=== PATIENT | female | born 1980 | race Caucasian/White ===

== ENCOUNTER → 2018-03-06 | Outpatient (CLI) | payer OTHER ==
[~2018-03-06] MED LIST: ACHD5005 PO; B12 IM; ESCT10T PO; IBP600T1 PO; INSU100VTC SQ; METF-380 PO; NF-NOR777T PO; PREN1TAB19 PO
--- NOTE | 2018-03-06 18:04 | Diagnostic Imaging Report ---
INDICATION: Routine screening. COMPARISON: No prior mammograms are available for comparison. This is a baseline study. TECHNIQUE: 2D and 3D bilateral screening mammography was performed with computer-aided detection (CAD) system. FINDINGS: Scattered fibroglandular densities are identified bilaterally. No mass or malignant appearing microcalcifications are seen. There are benign calcifications present. The axillae are unremarkable. IMPRESSION: No mammographic features suspicious for malignancy are identified. ACR BI-RADS Category 2: Benign findings. Result letter will be mailed to the patient. Note: At least 10% of breast cancer is not imaged by mammography. Dictated by: Dictated on workstation # [id number]
== END ==
LOC: RAD 13:54
PROVIDERS: ATTEND Nurse Practitioner Family
DX: Z12.31 Encounter for screening mammogram for malignant neoplasm of breast (principal)
CPT/HCPCS: 77067

== ENCOUNTER → 2019-03-26 | Outpatient (CLI) | payer OTHER ==
--- NOTE | 2019-03-26 08:52 | Diagnostic Imaging Report ---
PROCEDURE: US Gallbladder. TECHNIQUE: Multiple real-time grayscale images were obtained over the right upper quadrant in various projections. INDICATION: Belching, diarrhea. FINDINGS: Liver is enlarged measuring up to 23 cm. Diffuse increased echogenicity is seen throughout the liver consistent with hepatic steatosis. No discrete liver mass is identified. The portal vein is patent and shows normal direction of flow. Gallbladder appears to be contracted. No gallstones or sludge are seen. There is no wall thickening or biliary ductal dilatation. Pancreas was obscured by bowel gas. Right kidney is unremarkable. No calculi or hydronephrosis is seen. There is no ascites. IMPRESSION: 1. Hepatomegaly and hepatic steatosis. 2. Somewhat contracted gallbladder. No definite findings to suggest cholelithiasis or acute cholecystitis are identified. Dictated by: Dictated on workstation # [id number]
== END ==
LOC: RAD 07:18
PROVIDERS: ATTEND Nurse Practitioner Family
DX: K76.0 Fatty (change of) liver, not elsewhere classified (principal); K82.8 Other specified diseases of gallbladder
CPT/HCPCS: 76705

== ENCOUNTER → 2019-04-23 | Outpatient (CLI) | payer OTHER ==
[~2019-04-23] MED LIST changes: +CATHETER FLUSH 10 ML SYR IV PRN
--- NOTE | 2019-04-23 15:36 | Diagnostic Imaging Report ---
INDICATION: Right upper quadrant pain. TECHNIQUE: Patient was administered 5.3 mCi technetium-99m Choletec intravenously and imaging over the abdomen was performed. At 60 minutes, patient ingested one can of Ensure and gallbladder ejection fraction was calculated. FINDINGS: Homogeneous uptake of activity by the liver is seen. There is prompt excretion of activity into the gallbladder and common duct. Normal passage of activity into the small bowel is seen. Gallbladder ejection fraction is mildly low at 26%. Normal values are 33% or greater. IMPRESSION: 1. Patent cystic duct and common bile duct. 2. Slightly low gallbladder ejection fraction of 26%. Dictated by: Dictated on workstation # [id number]
== END ==
LOC: CARD 11:36
PROVIDERS: ATTEND Nurse Practitioner Family
DX: K82.0 Obstruction of gallbladder (principal)
CPT/HCPCS: 78227

== ENCOUNTER 2019-05-26 05:33 | Outpatient (CLI) | payer OTHER ==
[~2019-05-26] VITALS: Ht 160 cm; Wt 130.0 kg
[~2019-05-26 05:33] MED LIST changes: -CATHETER FLUSH 10 ML SYR IV PRN
[2019-05-26] MEDS ORDERED: LOSA100T57 PO (10:00)
[2019-05-26] MEDS ORDERED: DULA0.75 SQ (10:18)
[2019-05-26] MEDS ORDERED: FAMO-119 PO (10:18)
[2019-05-26] MEDS ORDERED: ATOR10TA PO (10:18)
[2019-05-26] MEDS ORDERED: BUPR150T7 PO (10:18)
[2019-05-26] MEDS ORDERED: AMLO10TA7 PO (10:18)
[2019-05-27] MEDS ORDERED: ACHD5005 PO (11:42)
[2019-05-27] MEDS ORDERED: DOCU-143 PO (11:42)
== END 2019-05-26 14:35 | disposition home or self-care (01) ==
LOC: PREOP 05:33
PROVIDERS: ATTEND Surgery
DX: Z01.818 Encounter for other preprocedural examination (principal)

== ENCOUNTER 2019-05-27 08:37 | Day surgery (SDC) | payer OTHER ==
[2019-05-27] VITALS (11 sets, daily range): BP systolic 127–148; BP diastolic 83–102
[~2019-05-27] VITALS: Ht 162.6 cm; Wt 129.8 kg
[~2019-05-27 08:37] MED LIST changes: +AMLO10TA7 PO; +ATOR10TA PO; +BUPR150T7 PO; +DULA0.75 SQ; +FAMO-119 PO; +LOSA100T57 PO
[2019-05-27] MEDS ORDERED: ceFAZolin 2 GM/50 ML NS 50 ML ONE (08:59)
[2019-05-27] MEDS: LACTATED RINGERS 1,000 ML IV PRN ×2 (09:00→11:00)
[2019-05-27 09:13] LABS: BASOPHILS # (AUTO) 0.1 10^3/uL (0.0-0.1); BASOPHILS % (AUTO) 1 % (0-10); EOSINOPHILS # (AUTO) 0.1 10^3/uL (0.0-0.3); EOSINOPHILS % (AUTO) 1 % (0-10); HEMATOCRIT 43 % (35-52); HEMOGLOBIN 14.9 G/DL (11.5-16.0); LYMPHOCYTES # (AUTO) 3.2 X 10^3 (1.0-4.0); LYMPHOCYTES % (AUTO) 38 % (12-44); MEAN CORPUSCULAR HEMOGLOBIN 30 PG (25-34); MEAN CORPUSCULAR HGB CONC 34 G/DL (32-36); MEAN CORPUSCULAR VOLUME 88 FL (80-99); MEAN PLATELET VOLUME 10.3 FL (7.4-10.4); MONOCYTES # (AUTO) 0.5 X 10^3 (0.0-1.0); MONOCYTES % (AUTO) 6 % (0-12); NEUTROPHILS # (AUTO) 4.5 X 10^3 (1.8-7.8); NEUTROPHILS % (AUTO) 54 % (42-75); PLATELET COUNT 284 10^3/uL (130-400); RED CELL DISTRIBUTION WIDTH 12.9 % (10.0-14.5); WHITE BLOOD COUNT 8.4 10^3/uL (4.3-11.0)
[2019-05-27] MEDS ORDERED: ceFAZolin 2 GM/50 ML NS 50 ML IV ONE (09:15)
[2019-05-27] MEDS ORDERED: BUP/EPI 0.25% 1:200,000 (MARCAINE) 10 ML VIAL IJ ONE (09:44)
[2019-05-27] MEDS ORDERED: fentaNYL INJECTION 100 MCG/2 ML AMP ONE ×2 (09:55→11:32)
[2019-05-27] MEDS ORDERED: MIDAZOLAM 2 MG/2 ML (VERSED) VIAL ONE (09:56)
--- NOTE | 2019-05-27 10:34 | Progress Note-Pre Operative ---
Pre-Operative Progress Note H&P Reviewed The H&P was reviewed, patient examined and no changes noted. Date Seen by Provider: May 27, 2019 Time Seen by Provider: 10:34 Date H&P Reviewed: May 27, 2019 Time H&P Reviewed: 10:34 Pre-Operative Diagnosis: biliary dyskinesia JONNY CARTER DO May 27, 2019 10:34
[2019-05-27] MEDS ORDERED: ONDANSETRON 4 MG/2 ML (SDV) Z0FRAN ONE (10:59)
[2019-05-27] MEDS ORDERED: LABETALOL HCL 20 MG/4 ML VIAL ONE (10:59)
[2019-05-27] MEDS ORDERED: GLYCOPYRROLATE 0.2 MG/ML (ROBINUL) 2 ML VIAL ONE (10:59)
[2019-05-27] MEDS ORDERED: SEVOFLURANE (ULTANE) 15 ML INHAL SOLN ONE (10:59)
[2019-05-27] MEDS ORDERED: ROCURONIUM 10 MG/ML 5 ML SYRINGE IV ONE ×2 (10:59→11:19)
[2019-05-27] MEDS ORDERED: proPOfol 200 MG/20 ML (DIPRIVAN) VIAL IV ONE (10:59)
[2019-05-27] MEDS ORDERED: NEOSTIGMINE 3 MG/3 ML VIAL ONE (10:59)
[2019-05-27] MEDS ORDERED: LIDOCAINE PF 2% 5 ML (XYLOCAINE) VIAL ONE (10:59)
--- NOTE | 2019-05-27 11:39 | Progress Note-Post Operative ---
Post-Operative Progess Note Surgeon (s)/Small Piece Cutter (s) Surgeon JONNY CARTER DO Small Piece Cutter: Dr. Burch Pre-Operative Diagnosis biliary dyskinesia Post-Operative Diagnosis same Procedure & Operative Findings Date of Procedure 05/27/19 Procedure Performed/Findings lap tito c ioc Anesthesia Type gen Estimated Blood Loss Estimated blood loss (mL): min Specimens/Packing Specimens Removed gallbladder JONNY CARTER DO May 27, 2019 11:39
[2019-05-27] MEDS ORDERED: ACHD5005 PO (11:42)
[2019-05-27] MEDS ORDERED: DOCU-143 PO (11:42)
--- NOTE | 2019-05-27 11:44 | Discharge Inst-Simple/Standard ---
Discharge Inst-Standard Discharge Medications New, Converted or Re-Newed RX: RX on Chart Patient Instructions/Follow Up Plan of Care/Instructions/FU: 2 weeks Pauly Activity as Tolerated: No Discharge Diet: Regular Diet Other Inst to Patient Follow up Appt: Make appointment for 2 weeks. Instructions: No lifting greater than 10 pounds. No strenuous activity. May shower in 24 hours, no tub bath or soaking. Use incentive spirometer at home as directed. No Smoking Skin/Wound Care: You have special glue over incision it will fall off on its own. Symptoms to Report: Appetite Changes, Extremity Discoloration, Numbness/Tingling, Swelling Increased, Bleeding Excessive, Eyesight Changes, Pain Increased, Urine Color Change, Constipation(Persistent), Fever over 101 degree F, Pain/Pressure in chest, Urinating Difficulty, Cough Up/Vomit Blood, Heart Beat Irreg/Pounding, Pain/Pressure in jaw, Vaginal Bleeding Increase, Cramps in feet or legs, Lightheadedness, Pain/Pressure in shoulder, Diarrhea(Persistent), Memory Changes Suddenly, Questions/Concerns, Weight gain consecutive days, Dizziness/Fainting, Nausea/Vomiting, Shortness of Breath, Weight gain over 2 pounds. If eyes or skin turn yellow notify physician. If questions or concerns contact your physician Or seek help at emergency department. JONNY CARTER DO May 27, 2019 11:43
[2019-05-27] MEDS ORDERED: ONDANSETRON 4 MG/2 ML (SDV) Z0FRAN IVP PRN (12:00)
[2019-05-27] MEDS ORDERED: morphine INJ 10 MG/ML 1ML (SYR OR VIAL) IVP ONE (12:00)
[2019-05-27] MEDS ORDERED: HYDROmorphone 2 MG/ML VIAL (DILAUDID) IV ONE (12:00)
[2019-05-27] MEDS ORDERED: HYDROcodone/APAP 5 MG/325 MG (LORTAB) TAB PO ONE (13:15)
--- NOTE | 2019-05-27 15:14 | Anesthesia-General Post-Op ---
General Post Op Complications Complications None Follow Up Care/Instructions Patient Instructions None needed. Anesthesia/Patient Condition Patient Condition Patient is doing well, no complaints, stable vital signs, no apparent adverse anesthesia problems. No complications reported per nursing. MALLIKA TO DO May 27, 2019 15:14
--- NOTE | 2019-05-27 16:23 | Diagnostic Imaging Report ---
INDICATION: Fluoroscopy during intraoperative cholangiogram. EXAMINATION: Fluoroscopy was provided during intraoperative cholangiogram. 12 seconds of fluoroscopic time was utilized. FINDINGS: Images demonstrate contrast being injected via the cystic duct remnant. Intrahepatic and extrahepatic bile ducts are normal caliber. No filling defects are seen. Contrast passes into the duodenum. IMPRESSION: Fluoroscopy for intraoperative cholangiogram. Dictated by: Dictated on workstation # [id number]
--- NOTE | 2019-05-27 22:53 | OPERATIVE REPORT ---
DATE OF SERVICE: 05/27/2019 PREOPERATIVE DIAGNOSIS: Biliary dyskinesia. POSTOPERATIVE DIAGNOSIS: Biliary dyskinesia. PROCEDURE: Laparoscopic cholecystectomy with intraoperative cholangiogram. SURGEON: Jonny Coats DO MANAGER GAMES: Dr. Burch, assisted in retraction, dissection and closure. ANESTHESIA: General. ESTIMATED BLOOD LOSS: Minimal. COMPLICATIONS: None. INDICATIONS: The patient is a 39-year-old female with symptoms and radiological imaging demonstrating biliary dyskinesia. She understands risks and benefits of procedure and wished to proceed with procedure. Consent was signed in the chart. DESCRIPTION OF PROCEDURE: The patient was taken to the operating suite. She was prepped and draped in sterile fashion. A timeout was performed. Local anesthetic was infiltrated just above the umbilicus. A 12 mm incision was made and cautery used to dissect down to the fascia, which was then scored, grasped and elevated and the abdomen was entered. An 0 Vicryl was placed in a [id number] fashion for closure at the end of the case. Balloon trocar was inserted and pneumoperitoneum was achieved. Under direct visualization of the laparoscope, a 5 mm trocar was placed in the subxiphoid region and two 5 mm trocars were placed in the right upper quadrant. Gallbladder was grasped, elevated. The gallbladder had multiple adhesions, which were then taken down with both blunt and cautery dissection. The cystic duct and cystic artery were then dissected out. Clips were placed on the proximal and distal portion of the cystic artery and the distal portion of the cystic duct. The cystic duct was then partially transected. Arrow catheter was inserted and cholangiogram was performed. There were no filling defects. Contrast made its way into the duodenum without difficulty. The Arrow catheter was removed. Clips were placed on the proximal portion of the cystic duct and the duct and artery were then transected. Hook cautery used to dissect the gallbladder from the gallbladder fossa achieving hemostasis. Once removed, it was placed in an Endobag and removed through 12 mm trocar site. The abdomen was then irrigated with copious amounts of irrigation and suction. The abdomen was then desufflated, the trocars were removed. The 0 Vicryl was placed earlier was then tied closing the fascial defect of the 12 mm trocar site. The skin was then closed using 4-0 Monocryl in subcuticular fashion. The abdomen was washed and dried and Skin Affix was placed over the incisions. The patient tolerated procedure well without any complications. She was taken to recovery room in stable condition. Job ID: [id number] DocumentID: [id number] Dictated Date: 05/27/2019 16:57:18 [employer] Date: 05/27/2019 22:52:11 Dictated By: JONNY COATS DO
== END 2019-05-27 14:13 | disposition home or self-care (01) ==
LOC: SDC 08:37
PROVIDERS: ATTEND Surgery
DX: K81.1 Chronic cholecystitis (principal); D13.5 Benign neoplasm of extrahepatic bile ducts; K82.8 Other specified diseases of gallbladder; K21.9 Gastro-esophageal reflux disease without esophagitis; I10 Essential (primary) hypertension; G47.33 Obstructive sleep apnea (adult) (pediatric); E11.9 Type 2 diabetes mellitus without complications; E66.01 Morbid (severe) obesity due to excess calories; F41.9 Anxiety disorder, unspecified; Z68.43 Body mass index [BMI] 50.0-59.9, adult; Z90.89 Acquired absence of other organs; Z88.8 Allergy status to other drugs, medicaments and biological substances; Z79.891 Long term (current) use of opiate analgesic; Z79.899 Other long term (current) drug therapy; Z82.3 Family history of stroke; Z82.49 Family history of ischemic heart disease and other diseases of the circulatory system; Z83.3 Family history of diabetes mellitus; Z82.62 Family history of osteoporosis
CPT/HCPCS: 36415; 84703; 85025; 87081; 88304; 94664

== ENCOUNTER → 2022-04-10 | Outpatient (CLI) | payer OTHER ==
[~2022-04-10] MED LIST changes: +AMLO-251 PO; -AMLO10TA7 PO; +BUPR150T24 PO; -BUPR150T7 PO; +DOCU-143 PO
--- NOTE | 2022-04-11 09:02 | Diagnostic Imaging Report ---
INDICATION: Routine screening. COMPARISON: 03/06/2018. TECHNIQUE: 2D and 3D bilateral screening mammography was performed with CAD. FINDINGS: Scattered fibroglandular densities are identified bilaterally. The parenchymal pattern is stable. No mass or malignant-appearing microcalcifications are seen. The axillae are unremarkable. IMPRESSION: No mammographic features suspicious for malignancy are identified. ACR BI-RADS Category 1: Negative. Result letter will be mailed to the patient. Note: At least 10% of breast cancer is not imaged by mammography. Dictated by: Dictated on workstation # [id number]
== END ==
LOC: RAD 15:13
PROVIDERS: ATTEND Obstetrics & Gynecology
DX: Z12.31 Encounter for screening mammogram for malignant neoplasm of breast (principal)
CPT/HCPCS: 77063; 77067

== ENCOUNTER → 2023-01-10 | Outpatient (CLI) | payer OTHER | LOC: CARD 12:26 | PROVIDERS: ATTEND Internal Medicine Cardiovascular Disease | DX: I10 Essential (primary) hypertension (principal); I25.10 Atherosclerotic heart disease of native coronary artery without angina pectoris | CPT/HCPCS: 93306 ==

== ENCOUNTER → 2023-01-20 | Outpatient (CLI) | payer OTHER ==
[2023-01-20 10:01] VITALS: BP 124/76
--- NOTE | 2023-01-20 12:13 | Cardiology Stress Test Report ---
Stress Test Report Date of Procedure/Referring: Date of Procedure: January 20, 2023 PCP Sabine Green MD Admitting Physician Admitting Physician: Attending Physician: Joon Doshi MD Baseline Heart Rate: 94 Baseline Blood Pressure: Blood Pressure Systolic: 124 Blood Pressure Diastolic: 76 Baseline EKG: Baseline EKG: NSR Summary/Conclusion: Summary: In summary, the patient started exercising with a baseline heart rate, blood pressure and EKG mentioned above Patient was able to exercise for a total of 5 minutes on Sebastien protocol, METs 7 Maximum heart rate 167 Maximum blood pressure 189/103 Stress EKG, Minimal nondiagnostic changes Recovery EKG , Return to baseline Conclusion: Fair exercise tolerance 45 minutes on standard Sebastien protocol 7 minutes, achieving 92% of maximal expected heart rate Hypertensive response to exercise with peak blood pressure 189/103 return to baseline during recovery Nondiagnostic EKG changes with exercise return to baseline during recovery No arrhythmia was detected JOON DOSHI MD January 20, 2023 12:13
== END ==
LOC: CARD 09:27
PROVIDERS: ATTEND Internal Medicine Cardiovascular Disease
DX: R07.9 Chest pain, unspecified (principal); R00.2 Palpitations
CPT/HCPCS: 93017

== ENCOUNTER → 2023-04-14 | Outpatient (CLI) | payer OTHER ==
[~2023-04-14] MED LIST changes: +BARIUM for suspension 96% w/w (Vanilla Silq Medium Density) PO ONE; +BARIUM for suspension 98% w/w (Vanilla Silq High Density) PO ONE; -LOSA100T57 PO; +LOSA100T58 PO
--- NOTE | 2023-04-14 11:05 | Diagnostic Imaging Report ---
INDICATION: Reflux and pre-gastric sleeve workup. TECHNIQUE: The patient ingested effervescent crystals as well as thin and thick barium and imaging over the esophagus, stomach, and proximal small bowel was performed. A total of 0.7 minutes of fluoroscopic time was utilized. 33 images were obtained. Reference air kerma is 134 mGy. FINDINGS: The preliminary radiograph of the abdomen is unremarkable. The esophagus has a smooth contour. No mass or stricture is identified. No hiatal hernia or gastroesophageal reflux is demonstrated. The stomach has a normal configuration. No mass or ulceration is seen. The proximal small bowel is unremarkable. IMPRESSION: Unremarkable upper GI study. Dictated by: Dictated on workstation # [id number]
== END ==
LOC: RAD 09:13
PROVIDERS: ATTEND Surgery
DX: Z01.818 Encounter for other preprocedural examination (principal); K21.9 Gastro-esophageal reflux disease without esophagitis
CPT/HCPCS: 74246

== ENCOUNTER → 2023-04-16 | Outpatient (CLI) | payer OTHER ==
[~2023-04-16] MED LIST changes: -BARIUM for suspension 96% w/w (Vanilla Silq Medium Density) PO ONE; -BARIUM for suspension 98% w/w (Vanilla Silq High Density) PO ONE
--- NOTE | 2023-04-17 09:58 | Diagnostic Imaging Report ---
Indication: Routine screening. Comparison is made with prior mammogram from 04/10/2022 and 03/06/2018. 2-D and 3-D bilateral screening mammography was performed with CAD. The current study was also evaluated with a Computer Aided Detection (CAD) system. Scattered fibroglandular densities are identified bilaterally. The parenchymal pattern is stable. No mass or malignant appearing microcalcifications are identified. Axillae are unremarkable. IMPRESSION: BI-RADS Category 1 No mammographic features suspicious for malignancy are identified. ACR BI-RADS Category 1: Negative. Result letter will be mailed to the patient. Note: At least 10% of breast cancer is not imaged by mammography. Dictated by: Dictated on workstation # [id number]
== END ==
LOC: RAD 15:26
PROVIDERS: ATTEND Obstetrics & Gynecology
DX: Z12.31 Encounter for screening mammogram for malignant neoplasm of breast (principal)
CPT/HCPCS: 77063; 77067

== ENCOUNTER 2023-05-22 05:33 | Outpatient (CLI) | payer OTHER ==
[~2023-05-22] VITALS: Ht 160 cm; Wt 122.7 kg
[2023-05-22] MEDS ORDERED: MTP25TSR PO (12:32)
== END 2023-05-23 07:48 | disposition home or self-care (01) ==
LOC: PREOP 05:33
PROVIDERS: ATTEND Surgery
DX: Z01.818 Encounter for other preprocedural examination (principal)